=== PATIENT | female | born 1940 | race Caucasian/White ===

== ENCOUNTER → 2020-04-22 | Outpatient (CLI) | payer MEDICARE ==
[~2020-04-22] MED LIST: CLINDAMYCIN HC300 MG PO; EUCERIN DAILY400 ML TP; KEFLEX CAP 500500 MG PO
== END ==
LOC: EXRD 04-09 11:30
DX: M81.0 Age-related osteoporosis without current pathological fracture (principal); M85.852 Other specified disorders of bone density and structure, left thigh
CPT/HCPCS: 77080

== ENCOUNTER 2020-10-20 12:16 | Emergency (ER) | payer MEDICARE ==
[~2020-10-20] VITALS: Ht 162.6 cm; Wt 52.6 kg
[2020-10-20 13:31] LABS: HEMOGLOBIN 14.4 gm/dl (12.3-15.3); RED BLOOD COUNT 4.92 M/UL (4.00-5.10); WHITE BLOOD COUNT 4.6 K/UL (4.5-11.0)
[2020-10-20 13:52] LABS: BUN/CREATININE RATIO 30 (0-10)
== END 2020-10-20 21:23 | disposition home or self-care (01) ==
LOC: ER1 12:16
PROVIDERS: Emergency Medicine
DX: Z23 Encounter for immunization (principal); U07.1 COVID-19
CPT/HCPCS: 71045; 80053; 85025; 99285; M0243; U0002

== ENCOUNTER 2020-11-01 10:48 | Inpatient (IN) | payer MEDICARE ==
[~2020-11-01] VITALS: Ht 172.7 cm; Wt 47.7 kg
[~2020-11-01 10:48] MED LIST changes: +CEFDINIR300 MG PO; +LEXAPRO5 MG PO; +MIRTAZAPINE7.5 MG PO
[2020-11-01 12:00] LABS: HEMOGLOBIN 16.5 gm/dl (12.3-15.3); RED BLOOD COUNT 5.31 M/UL (4.00-5.10); WHITE BLOOD COUNT 12.5 K/UL (4.5-11.0)
[2020-11-01 21:20] LABS: HEMOGLOBIN 15.3 gm/dl (12.3-15.3); RED BLOOD COUNT 4.99 M/UL (4.00-5.10); WHITE BLOOD COUNT 13.9 K/UL (4.5-11.0)
[2020-11-02 07:06] LABS: HEMOGLOBIN 14.6 gm/dl (12.3-15.3); RED BLOOD COUNT 4.96 M/UL (4.00-5.10); WHITE BLOOD COUNT 14.2 K/UL (4.5-11.0)
[2020-11-02] MEDS ORDERED: METOPROLOL TART25 MG PO (09:12)
[2020-11-02] MEDS ORDERED: AMLODIPINE BESY10 MG PO (09:12)
[2020-11-02] MEDS ORDERED: LOSARTAN POTAS100 MG PO (09:13)
[2020-11-03 05:53] LABS: HEMOGLOBIN 13.8 gm/dl (12.3-15.3); RED BLOOD COUNT 4.58 M/UL (4.00-5.10); WHITE BLOOD COUNT 13.7 K/UL (4.5-11.0)
--- NOTE | 2020-11-03 07:06 | NUR ---
PATIENT HAD CRITICAL POTASSIUM LAB OF 3.0 DR. LEE WAS NOTIFIED AND ORDERED 10MEQ IV POTASSIUM 100ML X2 BAGS. WILL CONTINUE TO MONITOR.
[2020-11-04 08:38] LABS: HEMOGLOBIN 13.2 gm/dl (12.3-15.3); RED BLOOD COUNT 4.31 M/UL (4.00-5.10); WHITE BLOOD COUNT 12.3 K/UL (4.5-11.0)
--- NOTE | 2020-11-04 15:23 | NUR ---
PATIENT NEEDS ULTRA SOUND GUIDED IV. OTHER IV'S HAVE BEEN PULLED OUT BY PATIENT AND ACCESS HAS BEEN ATTEMPED BY TWO RN'S AND ONCE BY ULTRA SOUND. PATIENT IS ALERT AND ORIENTED AND REFUSED TO LET [facility] SOUND GUIDED IV BE PLACED. SHE ACTUALLY SWUNG TRYING TO STRIKE STAFF AND SAID NO. PROVIDER IS AWARE AND INTENDS TO SPEAK WITH PATIENT PERSONALLY. WILL CONTINUE TO MONITOR.
[2020-11-05 04:07] LABS: RED BLOOD COUNT 4.34 M/UL (4.00-5.10); WHITE BLOOD COUNT 9.9 K/UL (4.5-11.0)
--- NOTE | 2020-11-05 11:42 | NUR ---
PATIENT MEDICATIONS DUE, I MIXED AND ATTEMPTED TO INSTILL IN DOBHOFF WHICH QUICKLY CLOGGED, I ATTEMPTED TO REMOVE THE CLOG MILKING THE TUBBING AND USING WARM TAP WATER WHICH DID NOT HELP.
[2020-11-06 06:46] LABS: HEMOGLOBIN 12.9 gm/dl (12.3-15.3); RED BLOOD COUNT 4.45 M/UL (4.00-5.10); WHITE BLOOD COUNT 11.5 K/UL (4.5-11.0)
--- NOTE | 2020-11-07 05:01 | NUR ---
COVID+ PT ON ROOM AIR SINCE ADMIT 11/01/20. TELE CALLED OUT TO REPORT O2 SAT OF 84% PUT PT ON 2L NASAL CANULA. HAD TO INCREASE TO 5L TO MAINTAIN AT 90%. DR. PAYNE GAVE ORDER TO TITRATE OXYGEN TO KEEP GREATER THAN 90%. DURING THE NIGHT PT AGAIN BEGAN TO DESAT. WE PUT PT ON HIGH MAG AND THEN MAXED OUT TO KEEP GREATER THAN 90%. PT AGAIN BEGAN TO DESAT, CALLED RESPIRATORY AND PT IS ON AIRVO 60 LITERS 94% TO KEEP GREATER THAN 90%.
[2020-11-07 07:44] LABS: HEMOGLOBIN 13.7 gm/dl (12.3-15.3); RED BLOOD COUNT 4.69 M/UL (4.00-5.10); WHITE BLOOD COUNT 13.7 K/UL (4.5-11.0)
--- NOTE | 2020-11-07 17:34 | NUR ---
PT SUCTIONED WITH A MODERATE AMOUNT THICK LONG SECRETIONS NOTED. TOLERATED WELL. SHE HAS REQUIRED INCREASED OXYGEN NEEDS MD HAS MET WITH FAMILY. WILL CONINUE TO MONITOR.
--- NOTE | 2020-11-07 20:35 | NUR ---
PT OXYGEN DROPPED TO 69% CONTACTED RESPIRATORY PT PLACED ON NON REBREATHER. CONTACTED PROVIDER PROVIDER VERBALLY ORDERED BIPAP AT 18/8 AND ABG'S. PT WAS THEN TRANSFERRED TO PCU. LEFT MESSAGE FOR MARISOL AVITIA AT [phone] TO RETURN CALL.
[2020-11-08 05:04] LABS: HEMOGLOBIN 13.5 gm/dl (12.3-15.3); RED BLOOD COUNT 4.5 M/UL (4.00-5.10); WHITE BLOOD COUNT 11.2 K/UL (4.5-11.0)
--- NOTE | 2020-11-08 13:54 | NUR ---
PATIENT FAMILY DECIDE PATIENT SHOULD BE COMFORT CARE. LEVOPHED STOPPED, MEDICATION STOPPED, FAMILY AT BEDSIDE, ONE DOSE OF MORPHINE GIVEN PER FAMILY REQUEST. WILL CONTINUE TO MONITOR
--- NOTE | 2020-11-08 14:49 | NUR ---
PATIENT PASSED TODAY AT 1428. FAMILY AT BEDSIDE
--- NOTE | 2020-11-08 15:40 | NUR ---
SPOKE WITH RACHAEL AT [facility]. [phone]. THEY ARE SENDING TRANSPORT FROM [facility]. SON MIAH SIGNED FORM [phone]. 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
--- NOTE | 2020-11-08 16:19 | NUR ---
[facility] [employer] PICKED PATIENT UP AT [id number] TODAY
== END 2020-11-08 14:28 | disposition expired | DRG 177 ==
LOC: ER1 10:48 → M/S 16:23 → CDU 16:23 → M/S 11-02 01:02 → PROG CARE 11-07 20:30
PROVIDERS: Emergency Medicine; Internal Medicine; Internal Medicine Nephrology; ADMIT Internal Medicine
PROC: 8E0ZXY6 Isolation (ICD-10-PCS; 2020-11-01)
PROC: 0DH67UZ Insertion of Feeding Device into Stomach, Via Natural or Artificial Opening (ICD-10-PCS; principal; 2020-11-03)
PROC: 3E0G76Z Introduction of Nutritional Substance into Upper GI, Via Natural or Artificial Opening (ICD-10-PCS; 2020-11-03)
PROC: 4A00X4Z Measurement of Central Nervous Electrical Activity, External Approach (ICD-10-PCS; 2020-11-06)
PROC: 5A0935A Assistance with Respiratory Ventilation, Less than 24 Consecutive Hours, High Flow/Velocity Cannula (ICD-10-PCS; 2020-11-07)
PROC: 5A09357 Assistance with Respiratory Ventilation, Less than 24 Consecutive Hours, Continuous Positive Airway Pressure (ICD-10-PCS; 2020-11-07)
PROC: 3E0333Z Introduction of Anti-inflammatory into Peripheral Vein, Percutaneous Approach (ICD-10-PCS; 2020-11-07)
PROC: XW033E5 Introduction of Remdesivir Anti-infective into Peripheral Vein, Percutaneous Approach, New Technology Group 5 (ICD-10-PCS; 2020-11-07)
PROC: B24BZZ4 Ultrasonography of Heart with Aorta, Transesophageal (ICD-10-PCS; 2020-11-08)
PROC: 3E033XZ Introduction of Vasopressor into Peripheral Vein, Percutaneous Approach (ICD-10-PCS; 2020-11-08)
DX: U07.1 COVID-19 (principal); J12.82 Pneumonia due to coronavirus disease 2019; G93.41 Metabolic encephalopathy; R65.21 Severe sepsis with septic shock; A41.9 Sepsis, unspecified organism; J96.01 Acute respiratory failure with hypoxia; I26.99 Other pulmonary embolism without acute cor pulmonale; N17.0 Acute kidney failure with tubular necrosis; R57.0 Cardiogenic shock; E87.1 Hypo-osmolality and hyponatremia; E46 Unspecified protein-calorie malnutrition; R64 Cachexia; S32.018A Other fracture of first lumbar vertebra, initial encounter for closed fracture; N13.30 Unspecified hydronephrosis; J98.11 Atelectasis; I31.3 Pericardial effusion (noninflammatory); E87.0 Hyperosmolality and hypernatremia; Z68.1 Body mass index [BMI] 19.9 or less, adult; I82.412 Acute embolism and thrombosis of left femoral vein; F41.9 Anxiety disorder, unspecified; E87.6 Hypokalemia; R13.10 Dysphagia, unspecified; I10 Essential (primary) hypertension; E86.0 Dehydration; G40.909 Epilepsy, unspecified, not intractable, without status epilepticus; F32.9 Major depressive disorder, single episode, unspecified; E83.39 Other disorders of phosphorus metabolism; D69.6 Thrombocytopenia, unspecified; I08.1 Rheumatic disorders of both mitral and tricuspid valves; J84.10 Pulmonary fibrosis, unspecified; I27.20 Pulmonary hypertension, unspecified; W18.39XA Other fall on same level, initial encounter; Y92.091 Bathroom in other non-institutional residence as the place of occurrence of the external cause; Z91.81 History of falling; Z86.718 Personal history of other venous thrombosis and embolism; Z79.01 Long term (current) use of anticoagulants
CPT/HCPCS: ECHO; 36415; 36600; 70450; 70551; 71045; 72125; 72128; 72131; 80048; 80053; 81001; 82550; 82553; 82803; 83605; 83735; 84100; 84132; 84295; 84484; 85025; 85027; 85379; 86140; 87040; 87086; 92526; 92610; 93005; 93306; 93970; 94660; 94760; 95816; 96374; 99285; J0360; J1100; J1335; J1650; J2270; J3370; J3480; J7030; J7070; U0002